=== PATIENT | female | born 1990 ===

== ENCOUNTER 2016-08-14 12:33 | Emergency (ER) | payer BC, MEDICAID, OTHER ==
[2016-08-14 12:48] VITALS: BMI 33.0
--- NOTE | 2016-08-14 13:54 | C.PDOC ---
History Of Present Illness 26-year-old female, PMHx includes GERD, presents to the emergency department with complaints of heartburn that started this morning. Patient took Zantac, after which she developed anxiety, resulting in her coming to the ED for evaluation. Sher abdominal pain, nausea/vomiting, or any other associated symptoms. Time Seen by Provider: 08/14/16 12:53 Chief Complaint (Nursing): Medical Clearance History Per: Patient History/Exam Limitations: no limitations Onset/Duration Of Symptoms: Hrs Current Symptoms Are (Timing): Still Present Severity: Moderate Past Medical History Reviewed: Historical Data, Nursing Documentation, Vital Signs Vital Signs: Last Vital Signs Temp 97.8 F 08/14/16 14:02 Pulse 85 08/14/16 14:02 Resp 20 08/14/16 14:02 BP 115/70 08/14/16 14:02 Pulse Ox 99 08/14/16 14:02 - Medical History PMH: Anxiety, Asthma, Bronchitis, Depression Denies: Diabetes, Hepatitis, HIV, HTN, Chronic Kidney Disease, Seizures, Sexually Transmitted Disease Surgical History: (x 1) - [facility] Procedures MONITORING NOS (08/28/14) GROUP PSYCHOTHERAPY (12/31/15) INDIVIDUAL PSYCHOTHERAPY, BEHAVIORAL (12/31/15) Family History: States: No Known Family Hx - Social History Hx Tobacco Use: No Hx Alcohol Use: No Hx Substance Use: No - Immunization History Hx Tetanus Toxoid Vaccination: No Hx Influenza Vaccination: No Hx Pneumococcal Vaccination: No Review Of Systems Except As Marked, All Systems Reviewed And Found Negative. Cardiovascular: Negative for: Chest Pain Respiratory: Negative for: Shortness of Breath Gastrointestinal: Negative for: Nausea, Vomiting Musculoskeletal: Negative for: Back Pain Psych: Positive for: Anxiety Physical Exam - Physical Exam Appears: Non-toxic, No Acute Distress Skin: Warm, Dry, No Rash Eye(s): bilateral: Normal Inspection Nose: Normal Oral Mucosa: Moist Neck: Normal ROM Cardiovascular: Rhythm Regular, No Murmur Respiratory: Normal Breath Sounds, No Accessory Muscle Use Extremity: Normal ROM Neurological/Psych: Oriented x3 ED Course And Treatment ECG: Interpreted By Me, Viewed By Me ECG Rhythm: Sinus Rhythm Rate From EC O2 Sat by Pulse Oximetry: 97 Disposition - Disposition Disposition: HOME/ ROUTINE Disposition Time: 13:50 Condition: GOOD Additional Instructions: Follow up with PMD within 1-2 days. Return to ED if feel worse. Prescriptions: Omeprazole Magnesium [Prilosec Otc] 20 mg PO DAILY #30 tcp Instructions: Anxiety (ED), Esophagitis (ED) - Clinical Impression Clinical Impression: Anxiety, Esophagitis - Scribe Statement The provider has reviewed the documentation as recorded by the Sindiibe Patricia Barriga All medical record entries made by the Sindiibbart were at my direction and personally dictated by me. I have reviewed the chart and agree that the record accurately reflects my personal performance of the history, physical exam, medical decision making, and the department course for this patient. I have also personally directed, reviewed, and agree with the discharge instructions and disposition.
[2016-08-14 14:03] VITALS: BP 115/70; PULSE 85; RESP 20; TEMP 97.8
[2016-08-14 16:37] VITALS: O2SAT 97
--- NOTE | 2016-08-31 12:20 | CARD ---
APPROVED REPORT EKG Measurement Heart [id number] <Conclusion> Normal sinus rhythm Normal ECG
== END 2016-08-14 14:02 | disposition home or self-care (01) ==
LOC: C.ER 12:33
DX: F41.9 Anxiety disorder, unspecified (principal); K20.9 Esophagitis, unspecified